=== PATIENT | female | born 1990 | race Caucasian/White ===

== ENCOUNTER 2020-03-01 10:11 | Emergency (ER) | payer OTHER ==
[~2020-03-01] VITALS: Ht 165.1 cm; Wt 92.3 kg
[2020-03-01] MEDS: CEPHALEXIN MONOHYDRATE 500 MG CAPSULE PO ONE (12:15)
[2020-03-01] MEDS: ACETAMINOPHEN 325 MG TABLET PO ONE (12:16)
[2020-03-01 12:20] VITALS: BP 119/79
[2020-03-01] MEDS: KETOROLAC TROMETHAMINE 60 MG/2 ML VIAL IM ONE (13:05)
== END 2020-03-01 13:07 | disposition home or self-care (01) ==
LOC: EMS 10:17
DX: L73.9 Follicular disorder, unspecified (principal); L03.111 Cellulitis of right axilla
CPT/HCPCS: 81025; 96372; 99284; J1885